=== PATIENT | male | born 1950 | race Caucasian/White ===

== ENCOUNTER 2021-06-12 12:29 | Inpatient (IN) | payer OTHER, MEDICARE ==
[~2021-06-12] VITALS: Ht 167.6 cm; Wt 89.5 kg
--- NOTE | ~2021-06-12 | EMS ---
[address] [address] EMS Patient Care Report Name: DO MOTT Room #: 170-7 ADM IN M.R.#: [id number] Admission: 06/12/21 Attend Phys: Sandro Burns MD Discharge: Date of : 50 Report #: [id number] THIS REPORT FOR: //name// Report Transmitted: 06/12/2021 19:57 EMS Care Summary [facility] MED-ACT Incident [id number] @ 06/12/2021 11:56 Incident Location [address] [place] [address] Patient DO MOTT Male, 70 Years 1950 Patient Address [id number] [place] [id number] Patient History Diabetes,Hypertension (HTN),Hyperlipidemia,Amputee,Chronic Kidney Disease, Patient Allergies Penicillin allergy,Sulfa,Tetracycline,Oxycodone,Metformin,Naproxen, Patient Medications Amlodipine, Acetaminophen, Zinc, Albuterol, Gabapentin, Seroquel, Levemir, Coreg, ASA, Atorvastatin, Lidocaine, Lisinopril, Chief Complaint wound to pt's left heel Disposition Transported No Lights/[place] Reason Sick Person Transported To [facility] Narrative dispatch: medic 1134 dispatched to a halfway facility for a report of a [address] [address] EMS Patient Care Report Name: DO MOTT Room #: 170-7 ADM IN ..#: [id number] Admission: 06/12/21 Attend Phys: Sandro Burns MD Discharge: Date of : 50 Report #: [id number] sick alliance party. medic 1134 immediately responded to the scene without delay. chief complaint: upon arrival to the scene ems enters the facility to find a 70 y/o male pt seated upright in a wheelchair. pt alert, answering questions. pt complains of pain to his left heel. history of present illness: pt reports he's suffered from a pressure ulcer on his left heel for approximately 2 months. pt states that area is painful when pressure is applied. staff reports wound has not responded to treatment. staff describes the wound as "festering." ems noted the wound to be bandaged with an unidentified reddish liquid leaking round it. ems further notes a distinct foul odor from the area. staff reports that they have not changed the dressing yet today, as it is typically done daily in the afternoons. staff requests pt be transferred to a local er for a CT scan of the area. staff presents a physician's order and states the physician is awaiting pt's arrival. assessment: als assessment performed, findings noted within report. rendered treatment: assessment, vital signs, transport. transport: staff requests pt transport to [facility]. pt lifted from wheelchair and placed on stretcher. stretcher transferred to ambulance, lifted, and secured. pt continuously monitored through out transport for changes in condition. upon arrival to the receiving facility pt lifted from cot and placed in a wheelchair in triage area. verbal report given to attending staff and transfer of care complete. Initial Vitals @12:25P: 109,R: 16,BP: 144/80,Pain: 3/10,GCS: 15,SpO2: 100,Revised Trauma: 12, @12:15P: 87,R: 16,BP: 137/64,Pain: 3/10,GCS: 15,Temp: 98.2F,SpO2: 99,Revised Trauma: 12, Impression Skin infection Procedures @12:06 ALS Assessment Response: UnchangedSucceeded @12:10 Surgical Mask on Patient Response: Unchanged Timeline 11:55,Call Received 11:55,Psap Call 11:56,Dispatched 11:57,En Route [address] [address] EMS Patient Care Report Name: DO MOTT Room #: 170-7 ADM IN M.R.#: [id number] Admission: 06/12/21 Attend Phys: Sandro Burns MD Discharge: Date of : 50 Report #: [id number] 12:03,On Scene 12:06,At Patient 12:06,ALS Assessment,Response: UnchangedSucceeded, 12:10,Surgical Mask on Patient,Response: Unchanged 12:15,BP: 137/64 M,PULSE: 87,RR: 16 R,SPO2: 99 Ox,ETCO2: ,BG: ,PAIN: 3,GCS: 15, 12:19,Depart Scene 12:25,At Destination 12:25,BP: 144/80 M,PULSE: 109,RR: 16 R,SPO2: 100 Ox,ETCO2: ,BG: ,PAIN: 3,GCS: 15, 12:41,Call Closed Disclaimer v1.1 Copyright 2020 [employer] This EMS Care Summary contains data elements from the applicable legal record (which may be displayed differently). It is designed to provide pertinent information for the following purposes: continuity of care, clinical quality, and state data reporting. The complete legal record is available to ED staff and administrators of the receiving hospital in [employer]'s Patient Tracker. All data is provided "as is."
[2021-06-12 12:33] VITALS: BP 113/34
[2021-06-12 13:09] LABS: ABSOLUTE NEUTROPHILS 6.3 thou/uL (1.4-8.2); BASOPHILS 0.6 % (0.0-2.0); HEMATOCRIT 34.1 % (42.0-52.0); HEMOGLOBIN 11.3 gm/dL (14.0-18.0); LYMPHOCYTES 18.2 % (24.0-44.0); MCH 29.9 pg (26.0-34.0); MCHC 33.2 g/dL (28.0-37.0); MONOCYTES 5.7 % (1.0-8.0); PLATELET COUNT 303 thou/uL (150-400); POLYS 72.5 % (36.0-66.0); RBC 3.79 mil/uL (4.50-6.00); WBC 8.6 thou/uL (4.0-11.0)
[2021-06-12 13:11] LABS: CALCIUM 9.1 mg/dL (8.5-10.1); CREATININE 2.3 mg/dL (0.7-1.3); POTASSIUM 4.3 mmol/L (3.5-5.1)
[2021-06-12] MEDS ORDERED: FLONASE 0.05%50 MCG NARES (17:01)
[2021-06-12] MEDS ORDERED: ACETAMINOPHEN325 MG PO (17:01)
[2021-06-12] MEDS ORDERED: VITAMIN C500 M2 PO (17:02)
[2021-06-12] MEDS ORDERED: ATORVASTATIN CA80 MG PO (17:02)
[2021-06-12] MEDS ORDERED: CARVEDILOL12.5 MG PO (17:02)
[2021-06-12] MEDS ORDERED: NORVASC10 MG PO (17:02)
[2021-06-12] MEDS ORDERED: ASA81BEC PO (17:02)
[2021-06-12] MEDS ORDERED: CULTURELLE1 EAC1 PO (17:03)
[2021-06-12] MEDS ORDERED: TESSALON PERLE100 M1 PO (17:04)
[2021-06-12] MEDS ORDERED: VITAMIN D21250 MCG PO (17:04)
[2021-06-12] MEDS ORDERED: NEURONTIN 300M300 M2 PO (17:04)
[2021-06-12] MEDS ORDERED: JUVEN PACKET1 EAC1 PO (17:05)
[2021-06-12] MEDS ORDERED: PROSOURCE275 GM PO (17:05)
[2021-06-12] MEDS ORDERED: NOVOLOG100 UNIT/1 SUBQ (17:05)
[2021-06-12] MEDS ORDERED: TORSEMIDE20 MG PO (17:06)
[2021-06-12] MEDS ORDERED: IPRAT-ALBUT 0.5-3 ML INH (17:11)
[2021-06-12] MEDS ORDERED: LIDODERM1 EACH TOP (17:12)
[2021-06-12] MEDS ORDERED: ZYRTEC10 M5 PO (17:12)
[2021-06-12] MEDS ORDERED: LEVEMIR100 UNIT/1 SUBQ (17:13)
[2021-06-12] MEDS ORDERED: VITAMIN B-650 M1 PO (17:14)
[2021-06-12] MEDS ORDERED: ONE-DAILY MULT1 EAC1 PO (17:14)
[2021-06-12] MEDS ORDERED: LISINOPRIL20 MG PO (17:14)
[2021-06-12] MEDS ORDERED: MUCINEX600 MG PO (17:15)
[2021-06-12] MEDS ORDERED: VICTOZA0.6 MG/0.1 SUBQ (17:15)
[2021-06-13] VITALS (8 sets, daily range): BP systolic 114–151; BP diastolic 31–64
--- NOTE | 2021-06-13 04:15 | NUR ---
PATIENT ADMITTED TO UNIT FROM ER APPROXIMATELY 0045. PATIENT IS ADMITTED VIA STRETCHER AND IS ASSISTED TO BED. PATIENT NOTED TO HAVE R BKA WELL OPEN WOUND TO LEFT HEEL THAT IS REDRESSED AND PICTURE IS PLACED ON CHART. PATIENT ALSO HAS EXCORIATED AREA TO COCCYX AND SIDES OF BOTH BUTTOCK CHEEKS. PATIENT IS ALERT TO PERSON AND PLACE AT THIS TIME. HE WAS ADMINISTERED 1MG ATIVAN IN ER FOR ANXIETY. PT HAS SOME WHEEZING IN BILATERQAL LUNG RICHARDS. HE IS ON 2L NC AND IS 94%. ALL OTHER VITAL SIGNS ARE STABLE. BEGAN IV INFUSION OF NS AT 75CC/HR. NO S/S OF DISTRESS NOTED AT THIS TIME.
[2021-06-13 05:49] LABS: HEMOGLOBIN 10.2 gm/dL (14.0-18.0); MCH 30.7 pg (26.0-34.0); MCHC 34.1 g/dL (28.0-37.0); MCV 89.9 fL (80.0-100.0); RBC 3.34 mil/uL (4.50-6.00); RDW 14.9 % (10.5-14.5); WBC 9.5 thou/uL (4.0-11.0)
[2021-06-13 06:28] LABS: CALCIUM 8.7 mg/dL (8.5-10.1); CREATININE 2.2 mg/dL (0.7-1.3); POTASSIUM 4.4 mmol/L (3.5-5.1)
--- NOTE | 2021-06-13 13:48 | NUR ---
Assumed care of pt this AM. Pt is A&O x2, plesant & cooperative. Pt has 2L NC PRN, currently not wearing it. Will occassionally state that he feels anxious & feels better w/ O2. Pt denies any current pain. Wound care done to pt lt heel. Plan to have surgery tmrw @ 1600. Pt not on tele monitor. Current bedrest, profo boot applied & sent for low air loss pump. Will continue to assess pt needs.
--- NOTE | 2021-06-13 17:13 | NUR ---
met with patient who admits with osteomylitis of left foot. Sister Jazmyn Puentes at bedside. patient has been to [facility], [facility], [facility] and [facility]. Patient sister like [facility] and [facility]. They would never return to [facility] or [facility] for varies reasons. Patient admitted to [facility] from on 04/20/21. Patient prev reside in home alone. Sister reports she has signed letter for use of medicare lifetime reserve days. She reports she has an application in process for [place] medicaid. she has sam application for [facility]. DPOA paperwork on chart naming sister as DPOA. Patient has no other siblings and parents . He has spoken of girlfriend. Anticipate return to [facility] once stable pending bed status.
[2021-06-14 03:06] LABS: GLYCOHEMOGLOBIN (HGB A1C) 7.8 % (4.8-5.6)
[2021-06-14 03:59] LABS: CALCIUM 8.8 mg/dL (8.5-10.1); CREATININE 2.4 mg/dL (0.7-1.3); POTASSIUM 4.3 mmol/L (3.5-5.1)
--- NOTE | 2021-06-14 04:08 | NUR ---
ASSUMED PT CARE AT 1900.PT WAS VERY ANXIOUS AT SHIFT CHANGE DUE TO SURGERY TODAY.RESEARCH LIBRARIAN ON DUTY NOTIFIED ORDER NOTED AND CARRIED OUT.PT STILL RESTLESS AFTER MED WAS GIVEN.PT CONSTANTLY YELLING OUT FOR THE URSE TO COME AND GET HIM OUT OF THE BED.PT WAS FINALLY GOTTEN UP FROM HIS BED ONTO THE RECLINER IN HIS ROOM PER HIS REQUEST.SPIRITUAL CARE STAFF SPENT SOME TIME WITH PT AT SHIFT CHANGE KEEPING HIM COMPANY.WOUND CARE DONE TO HIS L HEEL.PRAFO BOOTS ON ON HIS L HEEL.PT CONT ON 2L/NC.PT NPO SINCE MN FOR SX TODAY.CALL LIGHT WITHIN REACH.
[2021-06-14 04:33] LABS: HEMATOCRIT 33.4 % (42.0-52.0); HEMOGLOBIN 11.2 gm/dL (14.0-18.0); MCH 30.3 pg (26.0-34.0); MCHC 33.4 g/dL (28.0-37.0); MCV 90.7 fL (80.0-100.0); RBC 3.68 mil/uL (4.50-6.00); RDW 15.3 % (10.5-14.5)
[2021-06-14 07:41] VITALS: BP 96/63
--- NOTE | 2021-06-14 11:05 | NUR ---
Discussed during los with the hospitalist. Surgery for today. He is in his Life time res days. [facility] No weekend dc.
--- NOTE | 2021-06-14 11:50 | NUR ---
Assumed care of pt at 0700. Pt anxious about surgical procedure today. Therapeuitic communication used to relax and comfort patient. IVF infusing. Dressing on left heel c/d/i. Prefo boot in place. NPO. Call light within reach. Fall precautions in place. Will continue to monitor.
[2021-06-14 20:56] VITALS: BP 143/54
[2021-06-15 04:25] VITALS: BP 131/46
--- NOTE | 2021-06-15 07:46 | NUR ---
ASSUMED PT CARE AT 1900.PT LYING ON HIS BED WITH HIS SISTER BY HIS BED SIDE VISITING.PT WAS CALM WHEN THE SHIFT STARTED,BUT HE GOT VERY ANXIOUS WHEN HIS SISTER WAS ABOUT TO LEAVE.PRN ANXIETY MED GIVEN,NOT EFFECTIVE.PT REQUESTED TO BE TRANSFERRED FROM HIS BED TO THE RECLINER IN HIS ROOM.PER REPORT,PT IS NON WT BEARING ON HIS L FOOT.PT WAS NOTIFIED THAT IT WILL NOT BE POSSIBLE FOR THIS NURSE TO TRANSFER HIM TO [facility] RECLINER BC HE HAS A R BKA.PT ALERT /CONFUSED AND FORGETFUL AT TIMES.PT CONSTANTLY REQUESTING TO GET OUT OF BED.SWIFT TENDER ON DUTY NOTIFIED OF PT'D ANXIETY,ORDER NOTED AND CARIED.PT HAD 450CC OUTPUT FROM HIS EXT CATH.THIS AM,PT COMPLAINED THAT HE COULDN'T VOID,BLADDER SCAN SHOWED 124CC.PT NOTIFIED.DRSG TO HIS L HEEL C/D/I.MIN SEROUSANGUINEOUS DRAINAGE NOTED IN THE HEMOVAC.REPORT TO AM NURSE TO FOLLOW UP ON PT'S VOID.
[2021-06-15 07:54] VITALS: BP 139/51
--- NOTE | 2021-06-15 15:22 | NUR ---
ASSUMED PT CARE THIS AM. PT IS ALERT & ORIENTED X3 TO SELF, TIME AND SITUATION. BUT CAN BE FORGETFUL AND CONFUSED AT TIMES. PT IS INCONTINENT AND PLACED CONDOM CATH THIS AM. PT IS ACCUCHECK ACHS. PT HAS R BKA AND HAD SURGERY YESTERDAY ON L HEEL. WOUND PHYSICIAN DID WOUND CARE THIS AM. PT IS NONWEIGHT BEARING ON L LE. PT HAS RFA RUNNING NS @75ML/HR. GIVEN XANAX THIS AM FOR ANXIETY. EDUCATED TO USE IS THIS AFTERNOON. INFORMED HOSPITALIST THAT PT IS POSITIVE FOR MRSA AND ORDERED ISOLATION CART THIS AFTERNOON. WILL CONTINUE TO MONITOR PT. FOLLOW POC.
[2021-06-15 16:20] VITALS: BP 151/72
[2021-06-15 20:53] VITALS: BP 148/50
[2021-06-16 04:10] VITALS: BP 134/54
--- NOTE | 2021-06-16 05:56 | NUR ---
ASSUMED CARE OF PT AT 1900. BEDSIDE REPORT RECIEVED. JUANCARLOS ASSESSMENT COMPLETE. PRIOR BKA. LLE WOUND AND HEMOVAC. WOUND CARE COMPLETED TO SITE, SUTURES WELL APPROXIMATED, NO REDNESS OR HEAT TO SITE, NEW DRESSING APPLIED, CDI. HEMOVAC SECURE UNDER WRAPS. IVF RUNNING PER OCT. MEDS GIVEN PER OCT. PT CALLING OUT REPEATEDLY C NO NEEDS, WANTING SOMEONE IN ROOM C PT PER PT. CALL LIGHT AND CLUSTER CARE EDUCATION PROVIDED. PRN ANXIETY MEDS GIVEN Q 6 HOURS C NO EFFECTIVENESS. CONDOM CATH IN PLACE AND DRAINING, BAG BELOW LEVEL OF BLADDER. HOURLY ROUNDING CONTINUING, CALL LIGHT IN REACH.
[2021-06-16 07:58] VITALS: BP 146/54
[2021-06-16 10:31] LABS: ABSOLUTE NEUTROPHILS 8.2 thou/uL (1.4-8.2); BASOPHILS 0.1 % (0.0-2.0); HEMATOCRIT 31.2 % (42.0-52.0); LYMPHOCYTES 11.1 % (24.0-44.0); MCH 29.5 pg (26.0-34.0); MCV 92.2 fL (80.0-100.0); MONOCYTES 6.5 % (1.0-8.0); PLATELET COUNT 286 thou/uL (150-400); POLYS 82.3 % (36.0-66.0); RBC 3.38 mil/uL (4.50-6.00); RDW 15.3 % (10.5-14.5)
[2021-06-16 10:55] LABS: ALBUMIN 2.4 g/dL (3.4-5.0); CALCIUM 8.4 mg/dL (8.5-10.1); CREATININE 2.4 mg/dL (0.7-1.3); POTASSIUM 4.3 mmol/L (3.5-5.1); TOTAL BILIRUBIN 0.4 mg/dL (0.2-1.0); TOTAL PROTEIN 6.6 g/dL (6.4-8.2)
--- NOTE | 2021-06-16 11:07 | NUR ---
A/O X 2 SELF AND SITUATION FORGETFUL, 3 L 02 VIA NASAL CANNULA, RIGHT FOREARM IV WITH NS @ 75 MLS/HR, 2 ASSIST WITH TRANSFERS, OLD RIGHT BKA, NON WEIGHT BEARING LEFT LEG, CONDOM CATH, ACHS ACCU CHECKS, HEMOVAC LEFT FOOT, LEFT FOOT XEROFOAM, KERLEX, ANDREA WRAP. ON CONTACT FOR MRSA.
[2021-06-16 16:40] VITALS: BP 149/50
[2021-06-16 20:05] VITALS: BP 154/61
--- NOTE | 2021-06-17 03:41 | NUR ---
ASSUMED CARE OF PT AT 1900. BEDSIDE REPORT RECIEVED. PT YELLING OUT AT JUANCARLOS, WHEN ASKED WHAT PT NEEDED, PT DENIED ANY NEEDS. THIS CONTINUED ON AND OFF THROUGHOUT NIGHT. CALL LIGHT EDUCATION PROVIDED. JUANCARLOS ASSESSMENT COMPLETE. DENIES ANY PAIN. MEDS GIVEN PER MAR, PRN XANAX GIVEN Q6 HOUR PRN C MILD EFFECTIVENESS. PTS O2 90-91, CALLED RT, INCREASED O2 TO 4.5L, 97% SPO2. Q2 HOUR REPOSITIONING FOR COMFORT. CONDOM CATH IN PLACE. IVF INFUSING PER OCT. HOURLY ROUNDING CONTINUING. CALL LIGHT IN REACH
--- NOTE | 2021-06-17 05:45 | NUR ---
JOB RIVERA DRIVE SHAFT AND STEERING POST REPAIRER OF PTS INCREASED 02 NEEDS AND OBSERVATING OF PT ASPIRATING C ANY PO INTAKE. NEW ORDER FOR ST CONSULT AND NPO UNTIL CONSULT. ORDERS PLACED. DRINKS REMOVED FROM BEDSIDE. CALL LIGHT IN REACH
[2021-06-17 05:59] LABS: CALCIUM 8.2 mg/dL (8.5-10.1); CREATININE 2.3 mg/dL (0.7-1.3); POTASSIUM 4.1 mmol/L (3.5-5.1)
[2021-06-17 07:35] VITALS: BP 125/71
--- NOTE | 2021-06-17 09:50 | NUR ---
A/O X 2. 2 ASSIST WITH TRANSFERS. RIGHT FOREARM IV WITH 1/2 NS @ 100 MLS/HR. NONWEIGHT BEARING LEFT LEG. LEFT FOOT SURGICAL SITE-XEROFOAM, KERLIX, ANDREA WRAP. BILATERAL LUNGS COARSE, COUGH NONPRODUCTIVE. ON 4 L O2 VIA NASAL CANNULA. CONDOM CATH IN PLACE WITH MINIMAL OUTPUT OF [address] RIZO MADE AWARE OF MINIMAL OUTPUT OF URINE, BLADDER SCAN PERFORMED >276 RETAINED. INDWELLING SCHUMACHER ORDERED. NO PAIN NOTED RIGHT NOW.
--- NOTE | 2021-06-17 12:27 | NUR ---
Discussed during los with the hospitalist, possible ready for dc today or tomorrow per hospitalist. 5n VS SNF. Waldemar spoke with Aubrie Andrade & phillip 2-[address] REDDING. Tiered and requested to visit with waldemar later. WALDEMAR spoke with Jazmyn # [phone]. She had question for the physician. Cm passed to hospitalist to reach out to Jazmyn. Cont. following as needed for discharge needs.
[2021-06-17 16:43] VITALS: BP 137/62
--- NOTE | 2021-06-17 16:53 | HC ---
[facility] [place] [address] [place] [address] CONSULTATION Name: DO MOTT Room #: 445-P ADM IN M.R.#: [id number] Admission: 06/12/21 Attend Phys: Stacia Irizarry Discharge: Date of : 50 Report #: [id number] THIS REPORT FOR: cc: Eusebio Lang MD, Neal A. MD Geha,Valente Muñiz MD ~ DATE OF SERVICE: 06/13/2021 INFECTIOUS DISEASE CONSULTATION REASON FOR CONSULTATION: I was asked to evaluate concerning left calcaneus osteomyelitis. HISTORY OF PRESENT ILLNESS: The patient is a 70-year-old with underlying cardiovascular disease, hypertension, diabetes, peripheral neuropathy and vasculopathy. He reports about 6 months ago having a right lyovj-oag-sdkp amputation due to diabetic complications of his right foot. He has also had a chronic wound to his left heel. He tried offloading without improvement. The patient has been seen by ____ in the outpatient clinic and now at [facility]. He has been on multiple courses of antibiotics without improvement. Diabetic control has been reasonable. Due to failure to improve, he was hospitalized after CT scan showed wound with abscess in posterior plantar foot and acute osteomyelitis of the calcaneus. I have discussed the case with Orthopedic Surgery. He will be seeing him in the near future with anticipated further debridement and cultures. Denies any fever, chills or sweats. Pain has been manageable. He has elevated blood glucose levels. REVIEW OF SYSTEMS: A 14-point review was negative other than what has been described above. PAST MEDICAL HISTORY: Diabetes, chronic kidney disease, vitamin D deficiency, hypertension, coronary artery disease, permanent pacemaker, recurrent urinary tract infection, chronic diabetic neuropathy and vasculopathy, right BKA, permanent pacemaker. FAMILY HISTORY: No report of tuberculosis. SOCIAL HISTORY: Nonsmoker, no significant alcohol intake. long-term resident. ALLERGIES: ZYVOX, MEROPENEM, PENICILLIN, NAPROSYN, METFORMIN, OXYCODONE, SULFA, TETRACYCLINE. MEDICATIONS: As noted on his OCT, now on vancomycin and ciprofloxacin. PHYSICAL EXAMINATION: [facility] [address] [place] [address] CONSULTATION Name: DO MOTT Room #: 445-P [facility] IN M.R.#: [id number] Admission: 06/12/21 Attend Phys: Stacia Peacock Madeleinepedro Discharge: Date of : 50 Report #: [id number] VITAL SIGNS: Afebrile and hemodynamically stable. Alert, cooperative, pleasant. No acute distress. SKIN: With a wound over the hindfoot with exposed bone. No purulent drainage identified. Mild surrounding erythema. No lymphangitis identified to the distal leg, 1+ edema in the lower extremity distally. No palpable adenopathy. Eyes without scleral icterus. Mouth without mucositis. NECK: Supple. LUNGS: Clear. HEART: Regular, without murmur, gallop or rub. ABDOMEN: Soft and nontender with no hepatosplenomegaly or mass. EXTREMITIES: With 1+ edema in the left lower extremity. Unable to palpate pulses in his left foot. Popliteal was 2+, femoral was 2+. Right BKA with two eschars lateral along the stump incision line. No surrounding erythema or fluctuance. NEUROLOGIC: Cranial nerves intact. PSYCHIATRY: Mood without anxiety. He was on oxygen per nasal cannula. LABORATORY DATA: Reviewed. No microbiology reports yet back. CT of the extremity reviewed. IMPRESSION: A 70-year-old with diabetes, peripheral neuropathy and vasculopathy with nonhealing left hindfoot wound with calcaneus osteomyelitis. Recent right below-knee amputation, underlying chronic kidney disease and multiple drug allergies. RECOMMENDATION: We will obtain surgical consultation with Orthopedics for debridement and tissue cultures. We will hold antibiotics pending these samples. Check arterial studies and continue with diabetic management and offloading. <ELECTRONICALLY SIGNED> By: Valente Conner MD 06/17/21 1653 1134 [id number] Valente Conner MD /nt
[2021-06-17 19:41] VITALS: BP 148/61
[2021-06-18 04:14] LABS: CALCIUM 8.2 mg/dL (8.5-10.1); CREATININE 2.2 mg/dL (0.7-1.3)
--- NOTE | 2021-06-18 04:53 | NUR ---
RECEIVED CARE OF THIS PATIENT AT 1900. PATIENT ALERT AND ORIENTED WITH PERIODS OF CONFUSION. DRESSING ON L FOOT D/I. C/O MILD PAIN. C/O TROUBLE BREATHIG. O2 SAT MID 90'S. LUNGS ARE SLIGHTLY COARSE WITH SOME WHEEZING. GURGLING IN UPPER CHEST. BREATHING TX GIVEN. Regina RIVERA WAS ASKED FOR LASIX BUT AFTER SHE LISTENED TO HIM DECIDED HE DID NOT NEED IT. O2 MONITOR PLACED ON PATIENT TO KEEP AN EAR TO HIS O2 SAT. SCHUMACHER PATENT WITH BLOODY URINE. SLEPT LITTLE THIS SHIFT.
[2021-06-18 08:45] VITALS: BP 128/41
--- NOTE | 2021-06-18 09:27 | NUR ---
Per attending at [facility] plan is to be able to discharge to SNF in, Awaiting acceptance at [facility] referral sent on 06-17-21. Raymond was out of the room for procedure/test. Urology is following, related to urinary retention and blood in urine. He has no LTR days left and has been to skilled in the past, he came her from [facility] .
[2021-06-18 11:34] LABS: URINE BLOOD 3+ (Negative); URINE GLUCOSE-RANDOM* NEGATIVE (Negative); URINE KETONES TRACE (Negative); URINE PROTEIN (DIPSTICK) 3+ (Negative); URINE SPECIFIC GRAVITY 1.025 (1.005-1.035)
[2021-06-18 11:36] LABS: URINE CLARITY CLOUDY; URINE COLOR RED; URINE LEUKOCYTES-REFLEX 1+ (Negative); URINE NITRITE-REFLEX POSITIVE (Negative)
[2021-06-18 11:39] LABS: ICTOTEST (BILI CONFIRMATORY) Negative (Negative); URINE BILIRUBIN NEGATIVE (Negative)
--- NOTE | 2021-06-18 12:16 | NUR ---
Assumed care of pt at 0700. Pt anxious at times and drowsy in the am. Blood noted in the catheter collection bag and tubing. Hospitalist provider and urology procider aware. Catheter irrigated as needed. IVF and IV antibiotics infusing. Pt having a hard time taking liquids or solid food this am. Provider notified. Speech eval ordered. Pt NPO. Dressing changed. Call light within reach. Fall precautions in place. Will continue to monitor.
[2021-06-18 13:18] LABS: CASTS None Seen /LPF (None Seen); SQUAMOUS 0-3 Few /LPF (0-3)
[2021-06-18 13:19] LABS: BACTERIA-REFLEX 1-9 Few /HPF (None Seen); CRYSTALS None Seen /LPF (None Seen); URINE RBC >20 Many /HPF (NONE SEEN); URINE WBC-REFLEX 0-5 Rare /HPF (0-5)
[2021-06-18 17:16] VITALS: BP 120/53
[2021-06-18 21:38] VITALS: BP 155/70
--- NOTE | 2021-06-19 05:05 | NUR ---
RECEIVED CARE OF THIS PATIENT AT 1900. PATIENT ALERT AND ORIENTED X4. CALLED OUT SEVERAL TIMES FISRT PART OF SHIFT. TOLD PATIENT THAT I COULD NOT BE IN THERE EVERY FEW MINUTES AND HIS HOLLERING WAS DISTRUBING OTHER PATIENTS. HE SAID HE WAS SORRY AND WAS QUIET AND WENT TO SLEEP FOR A COUPLE OF HOURS. WOKE UP AND CALLED OUT FOR SOMETHING TO HELP HIM SLEEP SOME MORE, RECEIVED AN ORDER AND EXCUTED. SCHUMACHER PATENT BLOODY URINE. DR'S AWARE. PATIENT HAS 3 WAY CATH INCASE NEEDED FOR CBI. DENIES PAIN.
[2021-06-19 06:08] LABS: CALCIUM 7.9 mg/dL (8.5-10.1); POTASSIUM 3.7 mmol/L (3.5-5.1)
[2021-06-19 08:29] VITALS: BP 115/87
[2021-06-19 09:13] LABS: HEMATOCRIT 33.2 % (42.0-52.0); HEMOGLOBIN 10.5 gm/dL (14.0-18.0); MCH 29.3 pg (26.0-34.0); MCHC 31.6 g/dL (28.0-37.0); MCV 92.6 fL (80.0-100.0); RBC 3.59 mil/uL (4.50-6.00); RDW 15.4 % (10.5-14.5)
--- NOTE | 2021-06-19 09:40 | O ---
[facility] [place] [address] [place] [address] OPERATIVE REPORT Name: DO MOTT Room #: 445-P [facility] IN M.R.#: [id number] Admission: 06/12/21 Attend Phys: Stacia Irizarry Discharge: Date of : 50 Report #: [id number] THIS REPORT FOR: cc: Eusebio Lang MD, Neal A. MD Kneidel,Lenny Kapoor MD ~ DATE OF SERVICE: 06/14/2021 PREOPERATIVE DIAGNOSIS: Left calcaneal osteomyelitis. POSTOPERATIVE DIAGNOSIS: Left calcaneal osteomyelitis. PROCEDURE: Left subtotal calcanectomy. SURGEON: Lenny Banks MD CUSTOM SEAMSTRESS: None. ANESTHESIA: General. ESTIMATED BLOOD LOSS: Minimal. DRAINS: One Hemovac drain was placed. COMPLICATIONS: There were no complications. DESCRIPTION OF PROCEDURE: The patient was brought to the operating room where he was placed under general anesthesia. Once under adequate general anesthesia, his left lower extremity was prepped and draped in a sterile manner. The extremity was elevated and tourniquet placed to 300 mmHg. A posterolateral incision, ellipsing the patient's large posterolateral wound on the calcaneus was then made. This was dissected sharply down to the bone and this elliptical skin incision was then excised, exposing the posterior tuberosity of the calcaneus. The entire posterior body and tuber of the calcaneus was then exposed sharply with a 15 blade and a Landry elevator and then, once completely exposed, a sagittal saw was used to resect the calcaneus in an oblique fashion. An osteotome was used to complete the bone cut and the tuberosity was then removed in total. Cultures had been taken prior to removing the bone. The bone was sent to Pathology. There was some tenosynovitis in the peroneal tendon sheath, which was debrided as well with a rongeur. Once complete, the wound was irrigated copiously and closed over a Hemovac drain with 2-0 nylon suture in the skin. The wound was dressed with Xeroform, 4 x 4's, and a sterile soft compressive dressing was placed. Tourniquet was let down at 30 minutes. Toes were pink and warm with good capillary refill. There were no complications from [address] [address] OPERATIVE REPORT Name: DO MOTT Room #: 445-P [facility] IN M.R.#: [id number] Admission: 06/12/21 Attend Phys: Stacia Irizarry Discharge: Date of : 50 Report #: [id number] the procedure. The patient tolerated the procedure well and was sent to recovery room without incident. <ELECTRONICALLY SIGNED> By: Lenny Banks MD 06/19/21 0940 1512 1535 Lenny Banks MD /nt
--- NOTE | 2021-06-19 11:08 | PATH ---
[facility] [address] [place] [address] PATHOLOGY RPT PROCEDURE Name: DO MOTT Room #: 445-P ADM IN M.R.#: [id number] Admission: 06/12/21 Date of : 50 Discharge: Report #: [id number] Path Case #: [id number] [facility] Accession Number: [id number] . 01 Material submitted: . foot - LEFT FOOT OSTEOMYELITIS. Modifiers: left . 01 Clinical history: . CALCANECTOMY LEFT FOOT OSTEOMYELITIS . 02 Diagnosis: Left foot amputation: - Skin and soft tissue with gangrenous type necrosis, acute and chronic inflammation and granulation tissue. - Bone with osteopeniaand rare marrow elements. - No definite acute osteomyelitis identified. - Resected bone margins are negative for osteomyelitis or malignancy. (ANK:gisel; 06/18/2021) QTP 06/18/2021 1446 Local . 02 Electronically signed: . Maureen Hsu MD, Pathologist NPI- [id number] . 01 Gross description: . The specimen is received designated "Do Mott L foot osteomyelitis" and consists of a transected, amputated portion of bone (6.5 x 4.8 x 3.6 cm) that most closely resembles the calcaneus with a moderate amount of attached peters-polo, rubbery soft tissue. The smooth and intact surgical margin is inked black. Sectioning reveals unremarkable underlying dense bone. Also received in the same container is a polo unoriented somewhat D-shaped skin excision (12.0 x 6.1 cm, excised to a depth of 1.2 cm) which is surfaced with polo-white and granular skin. The epidermis displays a polo-peters to yellow necrotic moderately well circumscribed ulcer (5.6 x 5.5 cm) that comes to within 0.2 cm from the nearest edge margin (inked blue). The deep margin is inked is also inked blue. Sectioning reveals ball-brown and necrotic cut surfaces. Cat Scanner Operator sections are submitted following decalcification as follows: A1-A2: Bone margin, submitted on edge, represented A3: Section of bone opposite of margin, represented A4-A5: Ulcer to show proximity to edge margin, represented A6: Ulcer to show proximity to deep margin, represented (JENA; 06/17/2021) DKA/DKA 06/17/2021 1521 Local . 02 Pathologist provided ICD-10: [address] [address] PATHOLOGY RPT PROCEDURE Name: DO MOTT Room #: 445-P ADM IN M.R.#: [id number] Admission: 06/12/21 Date of : 50 Discharge: Report #: [id number] Path Case #: [id number] I96, L08.9 . 02 CPT . [id number], [id number] Specimen Comment: A courtesy copy of this report has been sent to [phone] Specimen Comment: [phone], Specimen Comment: Report sent to , DR FUENTES / DR COOPER Specimen Comment: A duplicate report has been generated due to demographic updates. Performed at: [address] [facility], [place] [id number] MD Nito Enamorado MD Phone: [phone] Performed at: [address] [facility] [id number] MD Olive Gage MD Phone: [phone]
--- NOTE | 2021-06-19 11:43 | NUR ---
Assumed care of pt at 0700. Pt had swallow study today and was put back on mechanical chopped diet, no straws. Dressing changed. Salmeron catheter in place. Blood still present in the catheter collection cag. MRSA in the wound. IVF and IV antibiotics infusing. No c/o at this time. Call light within reach. Fall precautions in place. Will continue to monitor.
--- NOTE | 2021-06-19 12:19 | NUR ---
Discussed during los with the attending physician. [facility] if [facility] will be able to accept for snf related to the low level and unable to get out of bed so far because of weakness. Jabari called and spoke with Jazmyn his contact . She passed on that the [place] Medicaid ernesto was turned in on 06/08/21 per Jazmyn uribe. Education on other facility he and Jazmyn would like to see if he would be able to go skilled rehab at. Have not had good experience , bad times at skilled centers before. Have been looking at [facility] [place] in [place] and estela [facility] if he could go there. We are holding on to his apartment, he really wants to be able to go home after rehab per Jazmyn. [facility]. Will cont. following as needed.
[2021-06-19 16:03] VITALS: BP 141/51
[2021-06-19 19:39] VITALS: BP 124/45
--- NOTE | 2021-06-20 01:06 | NUR ---
ASSESSED AT STRAT OF SHIFT. PT IN BED. EVENING MEDS GIVEN CRUSHED IN APPLE SAUCE AND PT GENO IT WELL. ON 2L OF O2 AND RECIEVED BREATHING TREATMENT FROM RT. PT ON ISOLATION FOR MRSA IN WOUNDS. PT REPOSITIONED FOR COMFORT. FOLLEY INTACT AND DARK COLOR URINE NOTED. FALL PREC IN PLACE AND CALL LIGHT AT REACH WILL CONT WITH POC TILL EOS.
[2021-06-20 06:04] LABS: CALCIUM 8.1 mg/dL (8.5-10.1); CREATININE 1.8 mg/dL (0.7-1.3); POTASSIUM 3.7 mmol/L (3.5-5.1)
[2021-06-20 07:42] VITALS: BP 148/42
--- NOTE | 2021-06-20 12:36 | NUR ---
Discussed during los with the hospitalist. Still working on snf with possible stay LTC at facility after skilled rehab. CM updated by Buddy [facility] that they are checking with [facility] to see if he used all his copay snf days. [facility] declined per buddy [facility] liaison. Will cont. assist as needed.
[2021-06-20 15:45] VITALS: BP 153/60
--- NOTE | 2021-06-20 19:14 | NUR ---
ASSUMED PT CARE THIS AM. PT IS AWAKE AND CONFUSED AT TIMES. CALLED IV TEAM THIS AM TO PLACE A NEW IV. PT HAS IV SITE ON L UA. 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 PT HAS PRAFO BOOTS ON L FOOT AND R BKA. PT IS ON 3L NC O2 WITH CONT PULSE OX. PT HAS SCHUMACHER CATH [address] WAY[address] PT IS ACCUCHECK ACHS. EDUCATED PT TO USE IS AND HOW TO COUGH BUT UNSUCCESSFUL. CRUSHED MEDS AND GIVEN WITH THICKEN APPLE JUICE. ENDORSE NIGHT NURSE. WILL CONTINUE TO MONITOR PT. FOLLOW POC.
[2021-06-20 19:23] VITALS: BP 159/71
--- NOTE | 2021-06-21 04:00 | NUR ---
ASSUMED CARE OF PT AT 1900. BEDSIDE REPORT RECIEVED. JUANCARLOS ASSESSMENT COMPLETE. PT EXPERINCING CONFUSION, PROVIDED REORIENTATION. PT DENIES ANY PAIN AT THIS TIME. 3 L O2 DINESH. MAURISIO PIV PATENT, SECURED C TEGADERM. IVF AND ABTS INFUSING PER OCT. SCHUMACHER IN PLACE, SCHUMACHER CARE PROVIDED. HOURLY ROUNDING CONTINUING, ALL NEEDS MET, CALL LIGHT IN REACH
[2021-06-21 04:24] VITALS: BP 140/47
[2021-06-21 07:48] VITALS: BP 150/50
--- NOTE | 2021-06-21 08:02 | NUR ---
[facility] passed on that he has used more than his 100 days for skilled rehab. CM visited with his little sister Jazmyn uribe; he does not have income to hire private duty at home. Education on trying to find [place] facility that will accept [place] for [place]TC. She requested [facility] and cm asked about [facility]? Absolutely not, never they are the ones that caused all this mess per Jazmyn. Referral sent to [facility].
[2021-06-21 11:36] LABS: CALCIUM 8.3 mg/dL (8.5-10.1); CREATININE 1.8 mg/dL (0.7-1.3); POTASSIUM 3.9 mmol/L (3.5-5.1)
--- NOTE | 2021-06-21 12:31 | NUR ---
ASSUMED PT CARE THIS AM. PT IS ACCUCHECK ACHS. GIVEN CRUSHED MEDS WITH APPLE SAUCE THIS AM. PT HAS SCHUMACHER CATH IN PLACE. SPEECH THERAPY AND PHYSICAL THERAPY WAS WORKING WITH PT. PT IS CURRENTLY SITTING ON HIS WHEELCHAIR. EDUCATED PT ABOUT USING INCENTIVE SPIROMETER. PT HAS 3L NC O2 WITH CONT PULSE OX. WILL CONTINUE TO MONITOR PT. FOLLOW POC.
--- NOTE | 2021-06-21 13:29 | NUR ---
Discussed during los with the attending physician. No anticipated dc over the weekend. Still looking for LTC, pending [place] Medicaid. [facility] are unable to take any Medicaid pending. Referral sent to [facility].
[2021-06-21 15:52] VITALS: BP 155/49
[2021-06-21 19:48] VITALS: BP 133/48
--- NOTE | 2021-06-22 04:41 | NUR ---
RECEIVED CARE OF THIS PATIENT AT 1900. PATIENT ALERT AND ORIENTED WITH PERIODS OF FORGETFULNESS AND CONFUSION. C/O ONLY MILD PAIN AND REFUSES PAIN MED. RESP EVEN AND UNLABORED. BREATHSOUNDS COASE WITH LOTS OF RADDELING IN THE THROAT. ASKED TO COUGH UP BUT HAS A WEAK COUGH. SLEPT MOST OF NIGHT.
[2021-06-22 05:14] VITALS: BP 155/63
[2021-06-22 09:21] VITALS: BP 146/50
[2021-06-22 15:36] VITALS: BP 133/51
--- NOTE | 2021-06-22 18:30 | NUR ---
PT ASSESSED AT START OF SHIFT. CALM AND COOPERATIVE W/ CARES. FED AT EACH MEAL BUT POOR APPETITE. PT NEEDS HEAVY COACHING IN CHIN TUCK AND DOUBLE SWALLOWING HE DOES NOT REMEMBER. TURNED Q2HRS. DR. FORD IN EARLY AND CHANGED DSNG TO FOOT. NO C/O PAIN. SISTER IN FOR VISIT. O2 SATS IN THE HIGH 90'S. USING YANQUER AT TIMES. COUGH STONGER WHEN FULL UPRIGHT.
[2021-06-22 20:02] VITALS: BP 140/56
--- NOTE | 2021-06-23 03:30 | NUR ---
ASSUMED CARE OF PT AT 1900. BEDSIDE REPORT RECIEVED. JUANCARLOS ASSESSMENT COMPLETE. PT EXPERIENCING CONFUSION, REORIENTATION PROVIDED. PT DENIES ANY PAIN. LLE WOUND DRESSING CHANGED ACCORDINLY. SCHUMACHER CARE AND IRRIGATION COMPLETE. INSULIN HELD DUE TO PT NOT EATING MUCH LUNCH OR DINNER TODAY. MEDS GIVEN PER OCT C APPLE SAUCE. LUE PIV SECURE AND PATENT, IVF INFUSING PER OCT. Q2 HOUR REPOSITIONING FOR COMFORT. ALL NEEDS MET, HOURLY ROUNDING CONTINUING. CALL LIGHT IN REACH
[2021-06-23 08:32] VITALS: BP 118/34
--- NOTE | 2021-06-23 11:31 | NUR ---
ASSUMED PT CARE THIS AM. PT IS MORE ALERT TODAY. PT HAS IV SITE ON BARRY. PT IS ACCHECK ACHS. PT HAS SCHUMACHER CATH IN PLACE. DID WOUND DRESSING ON L HEEL THIS AM AND PLACED PRAFO BOOTS ON. PT IS ON 2L NC O2. PT TOLERATED MEDICATION WELL. PT IS A FEEDER. PT IS ON THE BED SLEEPING, BED ON THE LOWEST POSITION, SIDE RAILS UP, CALL LIGHT WITHIN REACH. WILL CONTINUE TO MONITOR PT. FOLLOW POC.
[2021-06-23 19:43] VITALS: BP 155/41
[2021-06-24 04:19] LABS: HEMATOCRIT 34.1 % (42.0-52.0); MCH 29.6 pg (26.0-34.0); MCHC 32.2 g/dL (28.0-37.0); MCV 91.8 fL (80.0-100.0); RBC 3.71 mil/uL (4.50-6.00); RDW 15.4 % (10.5-14.5); WBC 6.2 thou/uL (4.0-11.0)
[2021-06-24 04:32] LABS: CALCIUM 8.2 mg/dL (8.5-10.1); CREATININE 1.6 mg/dL (0.7-1.3)
--- NOTE | 2021-06-24 05:40 | NUR ---
PT LYING IN BED. DENIES PAIN. RESTING COMFORTABLY. NO NEEDS VOICED. CALL LIGHT WITHIN REACH. FREQUENT OBSERVATION.
--- NOTE | 2021-06-24 08:00 | NUR ---
[facility].
[2021-06-24 08:45] VITALS: BP 138/53
[2021-06-24 15:37] VITALS: BP 145/53
--- NOTE | 2021-06-24 18:30 | NUR ---
PT ASSESSED AT START OF SHIFT. VERY WEAK AND LETHARGIC. SPEECH GAVE AM MEDS WHOLE IN APPLESAUCE AND PT CHEWED UP-PREFERS TO CRUSHING. TAKING NECTAR LIQUIDS HE DOES BETTER. ATE VERY POORLY TODAY. RESP LABORED. CONTINUES TO HAVE INTERMITTENT HEMATURIA-NO CLOTS NOTED. IRRIGATED UNTIL PINK PER UROLOGY.
[2021-06-24 19:35] VITALS: BP 136/35
--- NOTE | 2021-06-25 04:16 | NUR ---
RECEIVED CARE OF THIS PATIENT AT 1900. PATIENT ALERT AND ORIENTED BUT FORGETFUL WITH PERIODS OF CONFUSION. REMAINS ON BEDREST. DRESSING ON L FOOT D/I. RBKA. TAKES MEDS WHOLE IN A SPOON OF APPLESAUCE. ACCUCHECK WAS 154, 3 UNITS LISPRO INSULIN GIVEN. DENIES PAIN. SLEPT MOST OF NIGHT.
[2021-06-25 05:00] VITALS: BP 94/34
[2021-06-25 05:25] LABS: CALCIUM 8.3 mg/dL (8.5-10.1); CREATININE 1.6 mg/dL (0.7-1.3); POTASSIUM 3.9 mmol/L (3.5-5.1)
[2021-06-25 06:32] LABS: BE(vivo) -6.9 mmol/L (-2 to +3); HCO3 21.5 mmol/L (22.0-26.0); PO2 102.4 mmHg (80.0-100.0); pH 7.194 (7.360-7.450); sO2 96.2 % (92.0-98.0)
[2021-06-25 07:19] LABS: HEMATOCRIT 33.8 % (42.0-52.0); HEMOGLOBIN 10.6 gm/dL (14.0-18.0); MCHC 31.3 g/dL (28.0-37.0); MCV 92.9 fL (80.0-100.0); RBC 3.64 mil/uL (4.50-6.00); RDW 15.9 % (10.5-14.5); WBC 6.4 thou/uL (4.0-11.0)
[2021-06-25 07:37] LABS: HCO3 21.4 mmol/L (22.0-26.0); PCO2 51.3 mmHg (35.0-45.0); PO2 185.3 mmHg (80.0-100.0); pH 7.239 (7.360-7.450)
--- NOTE | 2021-06-25 07:55 | NUR ---
WENT INTO PATIENT ROOM TO GIVE AM MEDS. PATIENT UNRESPONSIVE EVEN TO PAINFUL STIMULI. O2 SAT WAS 80'S, INCREASED O2 TO 4L/NC WITH NOT MUCH CHANGE IN SAT. INCREASED TO 6L AND SAT WAS UPPER 90'S AND 100%. RAPID RESPONSE WAS CALLED. ORDERS RECEIVED AND FOLLOWED. PATIENT WENT TO CT FOR CT OF HEAD AND CHEST. WILL GO TO 3W AFTER. REPORT CALLED TO 3W NURSE.
[2021-06-25 08:30] VITALS: BP 144/34
--- NOTE | 2021-06-25 08:30 | NUR ---
Changes in medical condition. Increase need for respiratory support, being transferring to 3w. [place]. Per jose francisco uribe his little sister the ernesto was turned in on Jun 08, 2021.
--- NOTE | 2021-06-25 08:43 | NUR ---
patient transfered from to [facility] at 0830. unresponsive, 100% bipap. will keep monitor.
[2021-06-25 11:18] VITALS: BP 131/45
[2021-06-25 15:10] VITALS: BP 132/37
--- NOTE | 2021-06-25 15:25 | NUR ---
ISAAC reviewed chart and spoke with nursing and attending physician. Pt was transferred to from following activation of a CLERICAL PROOFREADER. Pt placed on bipap support. Pt is minimally responsive. ISAAC spoke with pt's sister, Jazmyn, via phone to provide update and discuss discharge plan. Awaiting call back from Rich at [facility]. Pt's sister is agreeable with referrals to alternate [place] facilities [place]. Pt's sister does not want to consider [facility] and [facility]. Jazmyn is agreeable with referral to [facility]. ISAAC faxed referral to [facility] and spoke with Toan in admissions. [facility] [place] consider [place] pending [place]. They will need a copy of the Medicaid application for consideration. Pt's sister to email ISAAC the [place] Medicaid application. ISAAC is following to assist as needed with discharge planning.
[2021-06-25 19:41] VITALS: BP 135/40
[2021-06-25 23:40] VITALS: BP 130/51
[2021-06-26 03:46] VITALS: BP 167/51
--- NOTE | 2021-06-26 05:10 | NUR ---
Pt. on BIPAP at 30% FIO2 at beginning of shift. Nonverbally responsive but withdraws to painful stimuli. Around 2224 he started waking up , opened his eyes spontaneously and able to state his name,birthdate and he's at the hospital. He is forgetful and confused , frequent reorientation given. Dr. Ulices Conner rounded on pt. Critical [facility] called to him and order received. Pt. requested to be off BIPAP. INVESTIGATIVE SHOPPER and RT notified. O2 at 4L and has maintained O2 sat in the upper 90's. Around 0130 , O2 titratde down to 3L and still maintaining O2 sat in the upper 90's. V paced per tele. Had 7 beat run of Vtach , asymptomatic. INVESTIGATIVE SHOPPER notified. Pt. has been repositioned for comfort. Pt. requested to use bathroom to have a bm. Already incontinent of small amount of bm then allowed to use bedpan and had a small bm. Salmeron had dark red to tea colored urine. Pt. katliners for nurse intermittently. Z guard applied to buttocks. Left foot dressing intact.
[2021-06-26 05:35] LABS: ABSOLUTE NEUTROPHILS 6.7 thou/uL (1.4-8.2); BASOPHILS 0.4 % (0.0-2.0); EOSINOPHILS 0.6 % (0.0-3.0); HEMATOCRIT 30.8 % (42.0-52.0); HEMOGLOBIN 10.2 gm/dL (14.0-18.0); LYMPHOCYTES 12.1 % (24.0-44.0); MCH 30.6 pg (26.0-34.0); MCHC 33.2 g/dL (28.0-37.0); MONOCYTES 5.3 % (1.0-8.0); PLATELET COUNT 308 thou/uL (150-400); POLYS 81.6 % (36.0-66.0); RBC 3.34 mil/uL (4.50-6.00); WBC 8.2 thou/uL (4.0-11.0)
[2021-06-26 06:08] LABS: CALCIUM 8.4 mg/dL (8.5-10.1); CREATININE 1.9 mg/dL (0.7-1.3); MAGNESIUM 2.1 mg/dL (1.8-2.4); POTASSIUM 3.9 mmol/L (3.5-5.1); TOTAL BILIRUBIN 0.3 mg/dL (0.2-1.0); TOTAL PROTEIN 6.1 g/dL (6.4-8.2)
[2021-06-26 07:37] VITALS: BP 129/28
[2021-06-26 09:00] VITALS: BP 154/45
[2021-06-26 11:50] VITALS: BP 148/46
--- NOTE | 2021-06-26 11:51 | NUR ---
ISAAC reviewed chart and spoke with nursing and attending physician. Pt is on continuous bipap support. Pt is on IV abx and IV lasix. ISAAC left voice message for Rich in admissions at [facility] regarding referral. ISAAC spoke with Toan in admissions at [facility] to follow up on referral. Toan to speak with his clinical team. Per nursing, pt may have a COVID test ordered. ISAAC is following to assist as needed with discharge planning.
--- NOTE | 2021-06-26 12:42 | HC ---
[facility] [place] [address] CONSULTATION Name: DO MOTT Room #: 362-P ADM IN M.R.#: [id number] Admission: 06/12/21 Attend Phys: Stacia Irizarry Discharge: Date of : 50 Report #: [id number] THIS REPORT FOR: cc: Eusebio Lang MD, Neal A. MD Smithson, David G. 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 From my review of the records, he has been at [facility] and most recently at [facility]. 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 The patient has not wanted another below-knee amputation. His course has been complicated by acute renal insufficiency superimposed on chronic kidney disease. He has had decreased p.o. intake with elevated BUN and creatinine and was started on normal saline. He is noted to have a toxic metabolic encephalopathy. We are seeing him in rehabilitation medicine consultation. PAST MEDICAL HISTORY: Includes coronary artery disease, hypertension. He had a prior above-knee amputation, pacemaker, diabetes mellitus as noted above, on insulin. He has a peripheral neuropathy. MEDICATIONS: Please see the full medication listing. ALLERGIES: HE HAS MULTIPLE ALLERGIES ARE NOTED. SOCIAL HISTORY: Lives alone, house, did not utilize a prosthesis, right lower extremity. Apparently, it never got ordered or was never followed through. He does have a sister who is involved and apparently signed a letter for him to utilize lifetime reserve days. They are also applying for [place] Medicaid. REVIEW OF SYSTEMS: Did not offer any current complaints of chest pain, shortness of breath or abdominal discomfort. PHYSICAL EXAMINATION: GENERAL: A 70-year-old white male in no obvious distress. There is a definite delay in his responses with some slowed cognition. VITAL SIGNS: His temperature 34.7, pulse 66, respirations 20, blood pressure 126/71. NEUROLOGIC: Facies appeared symmetric. He will follow basic 1-step commands, but again with significant delay. He has functional range of motion of the upper extremities, strength is probably a grade 3+ to 4-/5. He has the old [facility] [address] [place] [address] CONSULTATION Name: DO MOTT Room #: 362-P [facility] IN M.R.#: [id number] Admission: 06/12/21 Attend Phys: Stacia Irizarry Discharge: Date of : 50 Report #: [id number] right below-knee amputation. There are some small scabs distally. Reasonable range of motion at the knee. Strength is probably a grade 3+/5. Left lower extremity, he has the left heel, which is dressed post the calcanectomy. He has definite decreased sensation of his toes with decreased proprioception. Strength is probably a grade 3, supine to sit was max assist. Attempted sliding board transfer, but unable to get enough push with his arms and maintain the left lower extremity, nonweightbearing. He was only able to scoot a few inches. ASSESSMENT: A 70-year-old white male with the following problem list: 1. Toxic metabolic encephalopathy. 2. Left calcaneus osteomyelitis, status post left subtotal calcanectomy, 06/14/2021, nonweightbearing on the left lower extremity. 3. Prior right below-knee amputation, does not have a prosthesis. 4. Acute renal insufficiency superimposed on chronic kidney disease. 5. Diabetes mellitus, on insulin. 6. Peripheral neuropathy. 7. Hypertension. 8. Hyperlipidemia. PLAN: The patient is now utilizing his Medicare lifetime reserve days. Would agree with returning back to [facility] as is being considered. Thank you for asking us to assist in this patient's care. <ELECTRONICALLY SIGNED> By: Deuce Gery MD 06/26/21 [id number] Deuce Grey MD /nt
[2021-06-26 15:22] VITALS: BP 152/62
[2021-06-26 19:37] VITALS: BP 138/49
--- NOTE | 2021-06-26 19:57 | NUR ---
RN ASSUMED PT'S CARE AT 0700-1900PM, PT KNOWS HIS NAME , BUT PT IS RESPONSED SLOWLY, PT CAN FOLLOW SOME COMMANDS, PT IS ON BIPAP WITH O2 30%, PEEP 6,RR RATE 18, PT'S O2SAT STAY AT 95-99%, RN REPORTED PT'S FEVER, COVID CPR TEST HAS DONE, RESULT IS WAIT FOR,PT STILL HAS TEA COLOR URINE.
[2021-06-27 04:25] VITALS: BP 155/46
--- NOTE | 2021-06-27 04:48 | NUR ---
PT RESPONDS TO NAME BUT HAS A HARD TIME FOLLOWING COMMANDS. NON VERBAL RESPONSES BUT RESPONDS TO PAINFUL STIMULI. PT CONFUSED. PT ON BIPAP 30% FIO2 AND O2 SATS 99-100%. SCHUMACHER TO DD WITH DARK RED TINGED URINE. LEFT FOOT DRESSING INTACT. PT REPOSITIONED Q2. WILL CONTINUE TO MONITOR.
[2021-06-27 09:09] VITALS: BP 133/31
[2021-06-27 12:01] VITALS: BP 144/42
--- NOTE | 2021-06-27 14:23 | NUR ---
ISAAC reviewed chart and spoke with nursing and attending physician. Pt remains on continuous bipap support. Pt's COVID test yesterday was negative. Pt is on IV abx. ISAAC received email with pt's completed [place] Medicaid application. ISAAC spoke with pt's sister, Jazmyn, via phone. Provided update, as pt's family was not notified that pt's COVID test was negative. Family was waiting to find out if they were able to come visit pt. Pt's sister requested call from pt's nurse and physician. ISAAC notified both pt's nurse and attending physician. ISAAC discussed with Jazmyn, the need for post-acute placement pending pt's progress. Pt's sister asked about Medicare days for possible LTAC. Pt has been to [facility] in the past. ISAAC explained that Medicare days will need to be checked and verified. ISAAC updated that referral to [facility] has been denied. Awaiting input from [facility]. ISAAC spoke with Toan in admissions at [facility] to request an update. Informed Toan that [place] Medicaid application is avialable if needed. Toan to follow up with the clinical team. ISAAC also reached out to Jaky, liaison with [facility]. ISAAC is following to assist as needed with discharge planning.
[2021-06-27 14:37] VITALS: BP 132/37
[2021-06-27 19:19] VITALS: BP 157/49
--- NOTE | 2021-06-27 19:40 | NUR ---
RN ASSUMED PT'S CARE AT 0700-1900PM, PT OPENS HIS EYES BY VOICE AND PT KNOWS HIS NAME, PT CAN FOLLOW SOME COMMANDS, PT IS ON BIPAP ( O2 30% ) AT MOST OF TIME, PT'S O2SAT STAY AT 94-100%, PT'S VS ARE STABLE AT DAY SHIFT.
[2021-06-28 04:16] VITALS: BP 133/40
--- NOTE | 2021-06-28 07:15 | NUR ---
PROGRESS PT ALERT BUT CONFUSED AT TIMES. VSS. ON 2 LITERS O2 BUT REMOVES FREQUENTLY. SCHUMACHER IN PLACE DRAINING MBER COLORED URINE FLUSHED X 1 WITH GOOD OUTPUT. HAD A LOOSE STOOL INCONTINENT. PERICARE DONE SCROTUM AND PENIS EXTREMELY EDEMATOUS. 3 PLUS GENERALIZED EDEMA NOTED. LUNGS DIMINISHED BIPAP ON AT HS TOLERATED WQELL LEFT IN PLACE FOR ALL OF SHIFT.
[2021-06-28 07:32] VITALS: BP 121/37
[2021-06-28 11:37] LABS: ALBUMIN 1.7 g/dL (3.4-5.0); CALCIUM 8.4 mg/dL (8.5-10.1); CREATININE 2.2 mg/dL (0.7-1.3); MAGNESIUM 2.3 mg/dL (1.8-2.4); POTASSIUM 3.7 mmol/L (3.5-5.1); TOTAL BILIRUBIN 0.3 mg/dL (0.2-1.0); TOTAL PROTEIN 5.7 g/dL (6.4-8.2)
[2021-06-28 12:04] VITALS: BP 118/43
--- NOTE | 2021-06-28 13:59 | NUR ---
ISAAC reviewed chart and spoke with nursing and attending physician. Pt is currently off bipap and on 2L O2 via NC. Pt is on IV abx. Pt is communicating with staff today. ISAAC left voice message for Shira in admissions at [facility] to follow up on referral. ISAAC to fax [place] Medicaid application for review if [facility] is able to accept. Verified that pt does have available Medicare days for LTAC if needed. No weekend discharge planned. ISAAC is following to assist as needed with discharge planning.
[2021-06-28 16:02] VITALS: BP 104/47
--- NOTE | 2021-06-28 18:57 | NUR ---
RN ASSUMED PT'S CARE AT 0700AM, PT IS CONFUSED , PT CAN FOLLOW SOME COMMANDS, BUT HE KNOWS HIS SHERON , PT IS OFF BIPAP AND HE IS ON O2 2-3L/MIN/NC, PT'S O2SAT STAY AT 95-99%, PT'S VS ARE STABLE, PT'S URINE STILL IS TEA COLOR ,RN HAS FLUSH SCHUMACHER CATHETER 4 TIMES,PT STARTS NPO BY ST REASSESS THE PT,
[2021-06-28 20:10] VITALS: BP 107/81
[2021-06-29 04:47] VITALS: BP 112/30
--- NOTE | 2021-06-29 05:55 | NUR ---
Patient not making progress towards outcome goals. Vital signs and rhythm stable. Oxygen 2L during the day and BIPAP at night that he tolerated tonight at 30%. High fall prisks, fall precautions in place. Impaired skin intergity, coccy, eschar, applied z guard. Turned to sides. Kept NPO for aspiration until speech evaluates. Oral cares done.
[2021-06-29 08:32] VITALS: BP 116/59
[2021-06-29 11:54] VITALS: BP 146/31
[2021-06-29 16:48] VITALS: BP 147/34
--- NOTE | 2021-06-29 19:51 | NUR ---
RN ASSUMED PT'S CARE AT 0700-1900PM, PT IS A&OX1 ( PERSON ), PT IS CONFUSED AT TIME, PT IS OFF BIPAP AND HE IS ON O2 2L/MIN/NC AT MOST OF TIME TODAY, PT IS NPO AND PT IS TOLERATVED PPN AT 80ML/HR, RN HAS REPORTED TO DR COFFMAN PT'S URINE STILL HAS BLOOD, NS FLUSH SCHUMACHER CATHETER 3 TIMES TODAY.
[2021-06-29 21:50] VITALS: BP 131/33
[2021-06-30 00:33] VITALS: BP 143/32
[2021-06-30 00:55] LABS: HEMATOCRIT 30.3 % (42.0-52.0); HEMOGLOBIN 9.9 gm/dL (14.0-18.0); MCH 29.7 pg (26.0-34.0); MCHC 32.6 g/dL (28.0-37.0); MCV 91.1 fL (80.0-100.0); RBC 3.32 mil/uL (4.50-6.00); RDW 15.4 % (10.5-14.5); WBC 9.1 thou/uL (4.0-11.0)
[2021-06-30 03:37] LABS: ALBUMIN 1.8 g/dL (3.4-5.0); CALCIUM 8.3 mg/dL (8.5-10.1); CREATININE 2.3 mg/dL (0.7-1.3); MAGNESIUM 2.3 mg/dL (1.8-2.4); POTASSIUM 3.9 mmol/L (3.5-5.1); TOTAL BILIRUBIN 0.2 mg/dL (0.2-1.0); TOTAL PROTEIN 5.4 g/dL (6.4-8.2)
[2021-06-30 05:16] LABS: BE(vivo) -2.3 mmol/L (-2 to +3); HCO3 21.4 mmol/L (22.0-26.0); PCO2 33.2 mmHg (35.0-45.0); pH 7.428 (7.360-7.450); sO2 95.7 % (92.0-98.0)
[2021-06-30 05:17] VITALS: BP 149/49
--- NOTE | 2021-06-30 07:59 | NUR ---
PT ALERT AND ORIENTED X2. VSS AFEBRILE THIS AM. UNLABORED WITH BIPAP ON THIS AM. SCHUMACHER FLUSHED DUE TO CLOTS. URINE STILL BLOOD TINGED.
[2021-06-30 08:08] VITALS: BP 158/58
[2021-06-30 11:49] VITALS: BP 148/42
[2021-06-30 15:39] VITALS: BP 144/49
[2021-06-30 19:14] VITALS: BP 123/55
--- NOTE | 2021-06-30 19:40 | NUR ---
PT ALERT AND ORIENTED X 2, PERSON AND PLACE. CAN FOLLOW SOME COMMANDS. FLUSH SCHUMACHER X 2 WITH GOOD OUTPUT. URINE TEA COLOR. CONTINUE IV ANTIBIOTIC AND WOUND CARE. PT GETTING D5 FOR INCREASED SODIUM LEVEL. PT OFF BIPAP DURING MOST OF SHIFT, ON 2 L NC. PT DENIES PAIN OR ANY NEEDS AT THE MOMENT, WILL CONTINUE TO MONITOR.
[2021-07-01 03:47] LABS: CALCIUM 8.5 mg/dL (8.5-10.1); CREATININE 1.8 mg/dL (0.7-1.3); POTASSIUM 3.3 mmol/L (3.5-5.1)
--- NOTE | 2021-07-01 06:06 | NUR ---
Patient making slow progress towards outcome goals. High fall risks, fall precautions in place. Tolerating BIPAP at night. NPO until cleared by speech. PPN infusing. 3 way matt intact, irrigated 150 cc x 1 draining paxton coloredurine with small clots. Incontinent of bowels, stage 2 in left coccyx area. Vital signs and rhythm stable.
[2021-07-01 06:07] VITALS: BP 140/53
--- NOTE | 2021-07-01 06:19 | NUR ---
Potassium 3.3, orders received for replacement. Patient remains NPO untile cleared by speech.
[2021-07-01 11:23] VITALS: BP 147/39
[2021-07-01 15:21] VITALS: BP 115/52
--- NOTE | 2021-07-01 16:28 | NUR ---
ISAAC reviewed chart and spoke with nursing and attending physician. Pt requires bipap support at times. Currently, pt is on 2L O2 via NC. Pt is on IV abx. ISAAC received call from Janet admissions liaison at [facility], who states they are able to accept pt from a clinical standpoint. They will need a copy of pt's [place] Medicaid application. ISAAC spoke with pt's sister/DPOA, Jazmyn, via phone to provide update. Long discussion with Jazmyn regarding [facility]'s acceptance and alternate LTC options if needed. Jazmyn would like to see if pt would qualify for another LTAC stay at [facility]. Per Jazmyn, she received a letter from [facility] requesting additional information for pt's [place] Medicaid application. Jazmyn has healthcare POA and not financial. [facility] is requesting pt sign and have two people witness pt sign a form appointing his sister as his personal financial representative. ISAAC explained that pt needs to have capacity to sign a witnessed document. SW to discuss with attending physician. Pt's sister also requests a call from the physician tomorrow. ISAAC contacted [facility] to see if they have recommendations. Pt's sister is not agreeable with [facility] at this time due to the Medicare star rating. ISAAC discussed alternate options in [place]. Pt's sister to review and tour if possible. ISAAC faxed LTAC referral with Rev codes to [facility]. Notified [facility] liaison of new referral. ISAAC is following to assist as needed with discharge planning.
[2021-07-01 19:11] VITALS: BP 168/47
--- NOTE | 2021-07-01 19:51 | NUR ---
RN ASSUMED PT'S CARE AT 0700-1900PM, PT IS A&OX2 ( PERSON AND PLACE ), PT STARTS TO EAT , BUT PT STILL IS WEAK, AND HE NEEDS HELP MEAL AND CHANGE POSITION, PT IS CONTINUING PPN@ 80ML/HR, AND IV ABX, PT DENIES PAIN AT DAY SHIFT, PT IS OFF BIPAP AND HE IS O2 2L/MIN/NC, PT'S VS AND O2SAT ARE STABLE AT DAY SHIFT.
--- NOTE | 2021-07-02 01:22 | NUR ---
PT IS ALERT AND ORIENTED X1-2 THIS SHIFT, NOT ANSWERING MOST QUESTIONS APPROPRIATELY, BUT DOES CONVERSE WITH THIS NURSE. RN REQUESTED LARGER BIPAP MASK FROM RT DUE TO OPEN AREA ON BRIDGE OF PT'S NOSE. PT TOLERATED BIPAP FOR APPROXIMATELY 1 HOUR, BUT CONTINUED TO REMOVE MASK AND IS NOT REDIRECTABLE. PT PLACED ON 2L/NC AND HAS BEEN RESTING SINCE WITH O2 SATS >96%. DRESSING TO LEFT HEEL SURGICAL SITE IS INTACT AT THIS TIME. PT REPOSITIONED AT ROUTINE INTERVALS. WILL CONTINUE TO OBSERVE FOR CHANGES.
[2021-07-02 04:43] VITALS: BP 149/40
[2021-07-02 06:05] LABS: CALCIUM 8.4 mg/dL (8.5-10.1); CREATININE 1.6 mg/dL (0.7-1.3); POTASSIUM 3.8 mmol/L (3.5-5.1)
[2021-07-02 07:20] VITALS: BP 146/51
--- NOTE | 2021-07-02 11:12 | NUR ---
ISAAC reviewed chart and spoke with nursing and attending physician. Pt is on 2L of O2 via NC. Bipap use at HS. Pt is on IV abx and IV lasix. ISAAC received call from pt's sister/DPOA, Jazmyn, regarding [place] Medicaid application. ISAAC discussed with [facility]. ISAAC faxed DPOA ppwk and [place] Medicaid application to [facility] for review. ISAAC left message for [facility] liaison to follow up on referral. Awaiting input from [facility] at this time. ISAAC is following to assist as needed with discharge planning.
[2021-07-02 11:20] VITALS: BP 140/29
[2021-07-02 15:23] VITALS: BP 134/30
--- NOTE | 2021-07-02 18:25 | NUR ---
PT ALERT AND ORIENTED X 2, PT KNOWS NAME AND THAT HE IS IN THE HOSPITAL. PT PROGRESSING TOWARDS GOALS, PT HAD SMALL CONVERSATIONS WITH THIS RN THROUGHOUT THE DAY. PT HAS POOR APPETITE, EATING ONLY A FEW BITES OF FOOD TODAY. PPN RUNNING FOR NUTRITION. PT DENIES PAIN OR ANY OTHER NEEDS CURRENTLY, WILL CONTINUE TO MONITOR.
[2021-07-02 19:43] VITALS: BP 151/53
[2021-07-03 04:29] VITALS: BP 159/61
[2021-07-03 06:20] LABS: ALBUMIN 1.6 g/dL (3.4-5.0); CALCIUM 8.5 mg/dL (8.5-10.1); CREATININE 1.4 mg/dL (0.7-1.3); PHOSPHORUS 3.9 mg/dL (2.5-4.9); POTASSIUM 3.8 mmol/L (3.5-5.1)
--- NOTE | 2021-07-03 06:48 | NUR ---
PT IS A&OX2 AND IS PLEASANTLY CONFUSED. CONTINUES ON 2L/NC WITH SATS >95%. MEDS ADMINISTERED CRUSHED IN APPLESAUCE. [address], CONTINUES TO DRAIN YELLOW URINE WITH SOME SMALL CLOTS STILL NOTED; FLUSHED PRN X2 THIS SHIFT. CONTINUES ON PPN DUE TO POOR PO INTAKE. OPEN WOUND TO SACRUM DRESSED PER ORDERS. WILL CONTINUE TO OBSERVE FOR CHANGES.
[2021-07-03 07:30] VITALS: BP 148/33
[2021-07-03 11:45] VITALS: BP 74/52
--- NOTE | 2021-07-03 14:57 | NUR ---
ISAAC reviewed chart and spoke with nursing and attending physician. Pt is progressing towards goals for discharge. Pt is on 2L of O2 and on IV abx. ISAAC spoke with Rosa in admissions at [facility], who states that they need a copy of pt's [place] Medicaid application for review. ISAAC faxed DOUG ernesto and DPOA ppwk to the facility for review. Pt's sister/DPOA needs a form signed in order for her to further assist with the Medicaid application. Discussed with attending physician, who states pt does have the capacity to sign document. ISAAC met with pt and pt's nurse at bedside. Form reviewed with pt. Pt is able to state his name, and that he is in the hospital. Pt states he understands that Jazmyn is helping with his Medicaid application. Form signed and witnessed. Placed back on pt's chart. ISAAC spoke with pt's sister, Jazmyn, via phone to provide update. Jazmyn will be able to come get the form. ISAAC discussed that [facility] is reviewing pt's info. Jazmyn requests that a list of possible facilities be left for her to review as well. Jazmyn states she would like to tour facilities. ISAAC did state that [facility] has accepted pt from a clinical standpoint. Jazmyn states she does not want pt to go to that facility due to the Medicare star rating. No weekend discharge anticipated. ISAAC is following to assist as needed with discharge planning.
[2021-07-03 16:18] VITALS: BP 87/54
--- NOTE | 2021-07-03 18:59 | NUR ---
RN ASSUMED PT'S CARE AT 0700AM, PT IS A&OX2 ( PERSON AND PLACE), PT IS CONFUSED AT TIME, PT IS POOR EATING AND DRINKING, PT IS CONTINUING IV ABX AND PPN, PT'S O2 IS OFF TODAY, PT'S O2SAT STAYS AT 94-99%, PT'S VS ARE STABEL , PT'S WOUND CARE HAVE DONE, RN HAS REPORTED TO HOSPITAL DR ABOUT NEW WOUND AT SCROTUM AND PENIS,RN WILL REPORTED TO NEXT SHIFT TO KEEP SKIN CLEAN AND DRY , TURN Q2HR.
[2021-07-03 20:33] VITALS: BP 145/39
[2021-07-04 05:14] VITALS: BP 136/26
--- NOTE | 2021-07-04 05:23 | NUR ---
PT IS SLOWLY PROGRESSING TOWARD GOAL OF DISCHARGE. HE IS A&OX2, PLEASANTLY CONFUSED. CONTINUES WITH [address] DRAINING SAMANTHA URINE WITH LARGE AMOUNTS OF SEDIMENT, FLUSHED WITH 120CC OF NS X1 WITH GOOD RETURN. WOUND CARE TREATMENTS PERFORMED PER ORDERS, CONTINUES ON LOW AIRLOSS MATTRESS AND REPOSITIONING AT ROUTINE INTERVALS. STILL AWAITING PLACEMENT AT THIS TIME.
[2021-07-04 05:52] LABS: HEMATOCRIT 29.4 % (42.0-52.0); HEMOGLOBIN 9.5 gm/dL (14.0-18.0); MCH 29.4 pg (26.0-34.0); MCHC 32.4 g/dL (28.0-37.0); MCV 90.6 fL (80.0-100.0); RBC 3.25 mil/uL (4.50-6.00); RDW 15.4 % (10.5-14.5)
[2021-07-04 06:49] LABS: ALBUMIN 1.5 g/dL (3.4-5.0); CALCIUM 8.1 mg/dL (8.5-10.1); CREATININE 1.5 mg/dL (0.7-1.3); PHOSPHORUS 3.9 mg/dL (2.5-4.9); POTASSIUM 3.7 mmol/L (3.5-5.1)
[2021-07-04 07:39] VITALS: BP 131/38
[2021-07-04 11:38] VITALS: BP 132/25
[2021-07-04 17:02] VITALS: BP 136/38
[2021-07-04 20:08] VITALS: BP 134/85
[2021-07-05 03:23] VITALS: BP 121/28
--- NOTE | 2021-07-05 04:27 | NUR ---
his dtr brought some lemon pie at change of shift. he was able to eat this around midnight, along with a few other snacks. he had a large bm tonight. he has been turned and cleaned. he is alert to name only, but awakens easily.
[2021-07-05 06:19] LABS: ALBUMIN 1.5 g/dL (3.4-5.0); CALCIUM 8.1 mg/dL (8.5-10.1); CREATININE 1.5 mg/dL (0.7-1.3)
[2021-07-05 07:25] VITALS: BP 144/66
[2021-07-05 11:10] VITALS: BP 114/44
[2021-07-05 15:15] VITALS: BP 113/37
[2021-07-05 19:49] VITALS: BP 149/62
--- NOTE | 2021-07-05 19:52 | NUR ---
RN ASSSUMED PT'S CARE AT 0700-1900PM, PT KNOWS HIS NAME AND HIS DAY, PT CAN FOLLOW SOME COMMANDS, PT IS CONFUSED AT TIME, PT IS OFF O2 AND HE IS ON ROOM AIR, PT 'S O2SAT AND VS ARE STABLE AT DAY SHIFT, PT STILL IS POOR EATING AT MEAL TIME, PT IS CONTINUING IV ABX AND PPN AND WOUND CARE .
[2021-07-06 03:56] VITALS: BP 140/56
--- NOTE | 2021-07-06 06:25 | NUR ---
Patient making slow progress towards outcome goals. Vital signs and rhythm stable. Poor appetite, needs to be fed. PPN infusing. High fall risks, fall precautions in place. 3 way matt, irrigated, retun with small blood clots. Oxygenation optimal on room air when awake. Refused BIPAP at night, patient plaaced on 3L/NC while sleeping.
[2021-07-06 07:50] VITALS: BP 138/21
[2021-07-06 11:29] VITALS: BP 141/32
[2021-07-06 15:02] LABS: ABSOLUTE NEUTROPHILS 3.3 thou/uL (1.4-8.2); BASOPHILS 0.7 % (0.0-2.0); EOSINOPHILS 2.5 % (0.0-3.0); HEMATOCRIT 30.2 % (42.0-52.0); HEMOGLOBIN 9.7 gm/dL (14.0-18.0); LYMPHOCYTES 22.4 % (24.0-44.0); MCH 29.1 pg (26.0-34.0); MCV 90.9 fL (80.0-100.0); MONOCYTES 7.6 % (1.0-8.0); PLATELET COUNT 251 thou/uL (150-400); POLYS 66.8 % (36.0-66.0); RBC 3.32 mil/uL (4.50-6.00); RDW 14.9 % (10.5-14.5); WBC 4.9 thou/uL (4.0-11.0)
[2021-07-06 15:03] VITALS: BP 140/32
[2021-07-06 17:51] LABS: INR 1.18; PROTIME 12.8 Seconds (10.5-12.1)
--- NOTE | 2021-07-06 19:27 | NUR ---
RN ASSUMED PT'S CARE AT 0700-1900PM, PT KNOWS HIS NAME , PT CAN FOLLOW SOME COMMANDS, BUT PT IS CONFUSED, PT IS CONTINUING IV ABX AND PPN , RN HAS CALLED DR TO REPORT PT'S L NOSE BLEEDING AND PT HAS COUGHING AFTER PT EATING, PT STARTS O2 3L/MIN/NC AT 1400PM, NEW ORDER RECEIVED, KEEP NPO NOW, PPN CHANGE TO 40ML/HR, RN HAS REPORTED TO NEXT SHIFT TO KEEP EYES ON PT.
[2021-07-06 19:32] VITALS: BP 155/72
[2021-07-07 03:47] VITALS: BP 155/53
[2021-07-07 06:13] LABS: CALCIUM 8.6 mg/dL (8.5-10.1); CREATININE 1.6 mg/dL (0.7-1.3); POTASSIUM 4.2 mmol/L (3.5-5.1)
[2021-07-07 07:54] VITALS: BP 155/47
[2021-07-07 09:47] LABS: BE(vivo) -3.6 mmol/L (-2 to +3); HCO3 24.3 mmol/L (22.0-26.0); PCO2 59.1 mmHg (35.0-45.0); sO2 94.6 % (92.0-98.0)
[2021-07-07 09:48] LABS: pH 7.232 (7.360-7.450)
--- NOTE | 2021-07-07 09:52 | NUR ---
PT ZENON CALL WITH CRITICAL ABG. PH 7.23. ALL NECCESSARY PARTIES NOTIFIED.
[2021-07-07 11:50] VITALS: BP 109/44
[2021-07-07 12:29] LABS: BE(vivo) -1.8 mmol/L (-2 to +3); HCO3 24.6 mmol/L (22.0-26.0); PCO2 49.1 mmHg (35.0-45.0); PO2 120.8 mmHg (80.0-100.0); pH 7.317 (7.360-7.450); sO2 98.1 % (92.0-98.0)
[2021-07-07 16:02] VITALS: BP 133/43
--- NOTE | 2021-07-07 18:48 | NUR ---
RN ASSUMED PT'S CARE AT 0700AM, PT OPENS HIS EYES BY VOICE, PT CAN FOLLOW SOME COMMANDS, BUT PT IS CONFUSED, RN HAS CALLED DR TO REPORT ABNORMAL ABG AND CHEST X-RAY RESILTS, NEW ORDER RECEIVED, PT STARTS BIPAP WITH O2 40%, DC PPN , PT'S SOB HAS IMPROVED, PT'S O2SAT STAYS AT 96-100%, PT IS NPO UNTILL ST TO ASSESS PT TOMORROW. PT NEEDS HELP CHANGE POSITION AND ADL.
[2021-07-07 20:59] VITALS: BP 100/36
[2021-07-08 03:53] LABS: ABSOLUTE NEUTROPHILS 3.4 thou/uL (1.4-8.2); BASOPHILS 0.6 % (0.0-2.0); HEMATOCRIT 26.9 % (42.0-52.0); HEMOGLOBIN 8.8 gm/dL (14.0-18.0); LYMPHOCYTES 21.4 % (24.0-44.0); MCH 29.6 pg (26.0-34.0); MCHC 32.6 g/dL (28.0-37.0); MONOCYTES 7.4 % (1.0-8.0); PLATELET COUNT 254 thou/uL (150-400); POLYS 68.6 % (36.0-66.0); RBC 2.96 mil/uL (4.50-6.00); RDW 15.1 % (10.5-14.5); WBC 4.9 thou/uL (4.0-11.0)
[2021-07-08 04:39] LABS: ALBUMIN 1.6 g/dL (3.4-5.0); CALCIUM 8.3 mg/dL (8.5-10.1); CREATININE 1.6 mg/dL (0.7-1.3); TOTAL BILIRUBIN 0.2 mg/dL (0.2-1.0); TOTAL PROTEIN 5.7 g/dL (6.4-8.2)
[2021-07-08 04:47] VITALS: BP 108/52
[2021-07-08 07:27] VITALS: BP 122/33
--- NOTE | 2021-07-08 07:39 | NUR ---
BIPAP at 40% at shift change then RT titrated FIO2 down to 30%. Pt. oriented to person only and needs a lot of reorientation. Occasionally takes BIPAP mask off his nose. He has been repositioned for comfort. Kept NPO. Incontinent of bm last night. Morphine silvadene and z guard applied to buttocks then sacral foam dressing applied. Cont. on isolation for MRSA.
[2021-07-08 11:21] VITALS: BP 106/37
--- NOTE | 2021-07-08 14:44 | NUR ---
ISAAC reviewed chart and spoke with nursing and attending physician. Pt was placed back on bipap earlier today. Pulmonary re-consulted. Pt is on IV abx. Attending physician did speak with pt's sister/DPOA, Jazmyn, earlier today to discuss code status and possible peg tube placement. ISAAC followed up with several [facility] facilities that have not returned calls or are reviewing pt's info. [facility]-left voice message for admissions. [facility]-left voice message for Lucina. [facility]-voice mailbox is full for membership coordinator, Nelly. [facility]-spoke with Romulo. Faxed referral/DPOA ppwk/[place] application for review. Per Romulo, they review DOUG pending pts on a case by case basis. [facility]-spoke with Rosa in admission. Pt has been accepted from a clinical standpoint. Will need bank statements to provide to the business office. [facility]sp[facility] with Mahnaz. Not accepting Medicaid pending pts [facility]-spoke with Ana Laura. Not accepting Medicaid pending pts ISAAC spoke with pt's sister/DPOA via phone to provide update. Pt's sister states that she and her dtr toured several facilities over the holiday weekend. Jazmyn is waiting to hear back from [facility]. ISAAC provided update regarding [facility]'s acceptance and [facility] Pratt reviewing info. Contact info provided to Jazmyn. Pt's sister states that pt does not have monthly bank statements, as his social security is placed on a debit card, that she has access to and can provide a balance statement to the facility. ISAAC updated Rosa at [facility]. Pt's sister had many questions about plan of care. Emotional support provided. Pt's sister states she does not know if pt would want a peg tube placed. She will discuss code status with family today. ISAAC further discussed alternate options if pt's family is wanting to consider hospice. Pt might be appropriate for an inpt hospice setting, which would be covered by Medicare. ISAAC is following to assist as needed with discharge planning.
[2021-07-08 16:14] VITALS: BP 87/65
--- NOTE | 2021-07-08 19:50 | NUR ---
PATIENT HAS BEEN ALERT TO SELF AND SITUATION THIS SHIFT. PATIENT LUNG SOUNDS ARE DIMINISHED. PATRICK IS CCTELE AND HAS BEEN RUNING VPACED. PATIENT HAS HAD 1400 ML'S OF URINE OUT THIS SHIFT. PATIENT HAS BEEN INCONTINENT TWICE THIS SHIFT. PATIENT HAD WOUND CARE DONE TO HIS SACRUM, LEFT HEEL, AND DORSAL PENIS ORDERED. PATIENT GOT UP WITH PT THIS SHIFT AND TOLERATED IT WELL. PATIENT PULLED OUT HIS IV IN HIS LEFT HAND AND PULLED HIS OXYGEN MONITOR APART. OXYGEN MONITOR WAS REPLACED. PATIENT HAS AN IV IN HIS RIGHT FOREARM AND IT IS PATENT. PATIENTS INSULIN FOR THE PM PASS WAS HELD PATIENT DID NOT EAT DINNER. PATIENT WILL CONTINUE TO BE MONITORED.
[2021-07-08 19:52] VITALS: BP 119/41
[2021-07-09 03:26] VITALS: BP 127/46
--- NOTE | 2021-07-09 04:21 | NUR ---
Patient not progressing towards outcome goals. Oriented to person only, confused, frequently calls out for help, needs frequent reorientation/redirection. Vital signs and rhythm stable. Removed nasal cannula multiple times then denies doing it, refused BIPAP, able to coax into waering and demanded to be taken off immediately. Sats mid to upper 90's with 3L/NC. 3way matt draining-no irrigation necessary. Turned to sides. Buttocks pain with pericare and dressing change. Dressing change as directed.
[2021-07-09 08:09] VITALS: BP 156/30
[2021-07-09 11:30] VITALS: BP 139/40
--- NOTE | 2021-07-09 14:40 | NUR ---
ISAAC reviewed chart and spoke with nursing and attending physician. Pt is on 3L of O2. Pt is on IV abx and IV lasix. Palliative care consult ordered today to discuss code status and treatment goals. ISAAC left voice message for Romulo in admissions at [facility] to follow up on referral. [facility] has accepted pt from a clinical standpoint. [facility] to follow up with pt's sister/DPOA regarding financial statement. ISAAC is following to assist as needed with discharge planning.
[2021-07-09 15:53] VITALS: BP 134/47
[2021-07-09 20:06] VITALS: BP 130/51
--- NOTE | 2021-07-09 20:10 | NUR ---
PATIENT SISTER SPOKE WITH DIVISION SERVICE MANAGER FOR PALLITIVE CARE AND SHE CHANGED HIS CODE STATUS TO DNR.
--- NOTE | 2021-07-10 04:51 | NUR ---
Pt. on 3L/NC at shift change. RT called to put pt. on BIPAP and he has been on BIPAP all night with O2 sat in the mid 90's at 30% FIO2. He has been repositioned for comfort. Incontinent of bm , z guard and morphine silvadene applied to buttocks then covered with sacral border foam.Slept most of the night. Pt. arouses easily and opened eyes spontaneously.
[2021-07-10 07:05] LABS: CREATININE 1.5 mg/dL (0.7-1.3); POTASSIUM 3.5 mmol/L (3.5-5.1)
--- NOTE | 2021-07-10 07:35 | NUR ---
Pt. more awake and alert this am. Requested to take off mask (BIPAP). O2 at 3L/NC at this time with O2 sat in the mid to upper 90's. Day RN made aware.
[2021-07-10 07:39] VITALS: BP 116/38
[2021-07-10 11:32] VITALS: BP 121/42
--- NOTE | 2021-07-10 15:20 | NUR ---
ISAAC reviewed chart and spoke with nursing and attending physician. Palliative care consult completed yesterday. Pt's code status was changed to DNR. Discharge to hospice house or LTC with hospice was discussed with pt's sister/DPOA. ISAAC spoke with pt's DPOA, Jazmyn, via phone. Pt's sister states she has spoken with staff at [facility]. Pt's sister is hesitant to place pt in another nursing facility. SW discussed evaluation for a hospice house. SW discussed Medicare coverage for a hospice house and the admission criteria for a hospice facility. Pt's sister verbalized understanding. ISAAC emailed pt's sister the names, addresses and phone numbers of the hospice facilities, per her request. Pt's sister states she will review and possibly tour the facilities before making a decision. Pt's sister states that she would like to speak with a physician to discuss pt's current status and overall prognosis, to assure her that she is making the right decision. Pt's sister states that pt would not want a feeding tube. ISAAC notified attending physician and requested pt's sister to be called. SW to follow up with pt's sister tomorrow to discuss hospice house evaluation. ISAAC discussed with palliative care CLOTH HANDLER. ISAAC is following to assist as needed with discharge planning.
[2021-07-10 17:15] VITALS: BP 107/353
--- NOTE | 2021-07-10 18:29 | NUR ---
PT ALERT AND ORIENTED TO SELF. RECEIVED CRITICAL VANCO TROUGH AT 1415 AND INSTRUCTED TO HOLD 1600 VANCOMYCIN DOSE PER PHARMACIST. SCHUMACHER TO DD. SCHUMACHER IRRIGATED WITH 10ML NS DUE TO SMALL BLOOD CLOTS PRESENT. PT INCONTINENT OF STOOL. DRESSINGS CHANGED WITH WOUND NURSE AND PICTURES TAKEN AND FILED IN CHART. WILL CONTINUE TO MONITOR PT.
[2021-07-10 22:06] VITALS: BP 130/35
--- NOTE | 2021-07-11 03:22 | NUR ---
PT IS A&O TO SELF WITH FLAT AFFECT NOTED. DOES NOT ANSWER QUESTIONS APPROPRIATELY OR FOLLOW COMMANDS. REFUSED TO WEAR BIPAP THIS SHIFT. HAS BEEN ON NASAL CANNULA/3L AND MAINTAINING O2 SAT >95%. PT CONTINUES WITH CHRONIC SACRAL WOUND, DRESSING CHANGE PERFORMED THIS SHIFT. PT REPOSITIONED AT ROUTINE INTERVALS. MEDICATIONS CRUSHED IN APPLESAUCE. WILL CONTINUE TO OBSERVE FOR CHANGES
[2021-07-11 04:01] VITALS: BP 131/34
[2021-07-11 08:35] VITALS: BP 131/53
[2021-07-11 11:12] VITALS: BP 99/32
--- NOTE | 2021-07-11 15:26 | NUR ---
ISAAC reviewed chart and spoke with nursing and attending physician. Pt is on 4L of O2 via NC. Pt was refusing to wear the bipap last night. Palliative care CONGRESSIONAL AIDE is following to assist with transitioning to comfort care. ISAAC spoke with pt's sister/DPOA, Jazmyn, via phone to discuss hospice house referral/evaluation. Jazmyn was currently at the doctor's office and is planning to tour [facility] later today. Jazmyn states she will notify ISAAC if she would like a referral sent to the [facility]. ISAAC is following to assist as needed with discharge planning.
--- NOTE | 2021-07-11 18:17 | NUR ---
ASSUMED PATIENT CARE AT 0700. AWAKE, LETHARGIC. NOT EATTING. ON 5L/NC. NOT TOWARDS POC GOALS.
[2021-07-11 20:03] VITALS: BP 78/19
--- NOTE | 2021-07-11 22:52 | NUR ---
ASSUMED CARE OF PT AT 1900. AT BEGINNING OF SHIFT, PT WAS LETHARGIC AND ROUSABLE ONLY TO PAINFUL STIMULI WITH LABORED BREATHING. PT'S SIGNIFICANT OTHER AND SISTER PRESENT AT BEDSIDE. AROUND 1999, PT'S BLOOD PRESSURE WAS LOW AND ANTONIO-HUSSEIN REPIRATIONS BEGAN. O2 SAT REMAINED 90-91% AT THIS TIME ON 5L. AROUND 2014, PT BEGAN TO DESAT TO 84-85%. BIPAP PLACED ON PT, AND O2 SATS STAYED AROUND 83% FOR APPROXIMATELY 10 MINUTES. AROUND 2024, O2 SATS WERE UNABLE TO BE OBTAINED. RESPIRATIONS CEASED AND TIME OF WAS DECLARED AT 2029 BY 2 RNS. INCOME TAX ADVISOR LOCKSTITCH BINDER FOR PRIMARY PHYSICIAN NOTIFIED OF AT 2034. NEXT OF KIN NOTIFIED AT 2038. MTN NOTIFIED AT 2043. SQUARING SHEAR OPERATOR NOTIFIED AT 2129. CONSULTING PHHYSICIANS NOTIFIED. FAMILY IN TO SAY FINAL GOODBYES AROUND 2129, ALL PT BELONGINGS SENT WITH SISTER/DPOA VAN TIPTON.
== END 2021-07-11 20:30 | DRG 853 ==
LOC: ER 12:29 → 2N 18:58 → 3W 18:58 → 4S 18:58 → EROBS 18:58 → 2N 06-13 00:58 → 4S 06-13 18:43 → 3W 06-25 09:29
PROVIDERS: Hospitalist; Internal Medicine; Nurse Practitioner Family; Physician Assistant; Specialist; Student in an Organized Health Care Education/Training Program; ADMIT Hospitalist; ATTEND Hospitalist
PROC: 0QBM0ZZ Excision of Left Tarsal, Open Approach (ICD-10-PCS; principal; 2021-06-14)
PROC: 5A09357 Assistance with Respiratory Ventilation, Less than 24 Consecutive Hours, Continuous Positive Airway Pressure (ICD-10-PCS; 2021-06-25)
PROC: 5A09357 Assistance with Respiratory Ventilation, Less than 24 Consecutive Hours, Continuous Positive Airway Pressure (ICD-10-PCS; 2021-06-26)
PROC: 5A09357 Assistance with Respiratory Ventilation, Less than 24 Consecutive Hours, Continuous Positive Airway Pressure (ICD-10-PCS; 2021-06-27)
PROC: 5A09357 Assistance with Respiratory Ventilation, Less than 24 Consecutive Hours, Continuous Positive Airway Pressure (ICD-10-PCS; 2021-06-28)
PROC: 5A09357 Assistance with Respiratory Ventilation, Less than 24 Consecutive Hours, Continuous Positive Airway Pressure (ICD-10-PCS; 2021-06-29)
PROC: 5A09357 Assistance with Respiratory Ventilation, Less than 24 Consecutive Hours, Continuous Positive Airway Pressure (ICD-10-PCS; 2021-06-30)
PROC: 5A09357 Assistance with Respiratory Ventilation, Less than 24 Consecutive Hours, Continuous Positive Airway Pressure (ICD-10-PCS; 2021-07-01)
PROC: 5A09357 Assistance with Respiratory Ventilation, Less than 24 Consecutive Hours, Continuous Positive Airway Pressure (ICD-10-PCS; 2021-07-02)
PROC: 5A09357 Assistance with Respiratory Ventilation, Less than 24 Consecutive Hours, Continuous Positive Airway Pressure (ICD-10-PCS; 2021-07-07)
PROC: 5A09357 Assistance with Respiratory Ventilation, Less than 24 Consecutive Hours, Continuous Positive Airway Pressure (ICD-10-PCS; 2021-07-09)
DX: A41.9 Sepsis, unspecified organism (principal); G92.8 Other toxic encephalopathy; N17.0 Acute kidney failure with tubular necrosis; J96.01 Acute respiratory failure with hypoxia; J96.02 Acute respiratory failure with hypercapnia; J69.0 Pneumonitis due to inhalation of food and vomit; E43 Unspecified severe protein-calorie malnutrition; M86.172 Other acute osteomyelitis, left ankle and foot; B37.49 Other urogenital candidiasis; M31.9 Necrotizing vasculopathy, unspecified; I13.0 Hypertensive heart and chronic kidney disease with heart failure and stage 1 through stage 4 chronic kidney disease, or unspecified chronic kidney disease; E11.65 Type 2 diabetes mellitus with hyperglycemia; E11.40 Type 2 diabetes mellitus with diabetic neuropathy, unspecified; N18.9 Chronic kidney disease, unspecified; L89.620 Pressure ulcer of left heel, unstageable; R33.9 Retention of urine, unspecified; G54.6 Phantom limb syndrome with pain; E11.22 Type 2 diabetes mellitus with diabetic chronic kidney disease; Z20.822 Contact with and (suspected) exposure to COVID-19; E78.5 Hyperlipidemia, unspecified; I50.9 Heart failure, unspecified; I25.10 Atherosclerotic heart disease of native coronary artery without angina pectoris; E11.69 Type 2 diabetes mellitus with other specified complication; E11.42 Type 2 diabetes mellitus with diabetic polyneuropathy; R53.81 Other malaise; R41.0 Disorientation, unspecified; K59.00 Constipation, unspecified; R31.0 Gross hematuria; N13.9 Obstructive and reflux uropathy, unspecified; F03.90 Unspecified dementia, unspecified severity, without behavioral disturbance, psychotic disturbance, mood disturbance, and anxiety; D64.9 Anemia, unspecified; E11.51 Type 2 diabetes mellitus with diabetic peripheral angiopathy without gangrene; R62.7 Adult failure to thrive; E66.01 Morbid (severe) obesity due to excess calories; T87.9 Unspecified complications of amputation stump; L89.150 Pressure ulcer of sacral region, unstageable; R13.10 Dysphagia, unspecified; Z66 Do not resuscitate; Y83.8 Other surgical procedures as the cause of abnormal reaction of the patient, or of later complication, without mention of misadventure at the time of the procedure; Z89.511 Acquired absence of right leg below knee; Z88.8 Allergy status to other drugs, medicaments and biological substances; Z95.0 Presence of cardiac pacemaker; Z88.1 Allergy status to other antibiotic agents; Z88.0 Allergy status to penicillin; Z88.2 Allergy status to sulfonamides; Z79.82 Long term (current) use of aspirin; Z79.899 Other long term (current) drug therapy; Z68.31 Body mass index [BMI] 31.0-31.9, adult; Z51.5 Encounter for palliative care; Z28.21 Immunization not carried out because of patient refusal
CPT/HCPCS: 10080; 10195; 10879; 50010; 50101; 50386; 50951; 56525; 57091; 57180; 70005